=== PATIENT | female | born 1975 | race Caucasian/White ===

== ENCOUNTER 2016-09-06 16:31 | Inpatient (IN) | payer BC, OTHER ==
[~2016-09-06] VITALS: Ht 170.2 cm; Wt 71.7 kg
[2016-09-06] MEDS ORDERED: DICYCLOMINE HCL 20 MG TABLET PO PRN (16:45)
[2016-09-06] MEDS ORDERED: LORAZEPAM 2 MG/1 ML VIAL IM PRN (16:45)
[2016-09-06] MEDS ORDERED: LORAZEPAM 1 MG TABLET PO PRN (16:45)
[2016-09-06] MEDS ORDERED: MAG HYDROX/AL HYDROX/SIMETH 30 ML LIQUID UDC PO PRN (16:45)
[2016-09-06] MEDS ORDERED: ACETAMINOPHEN 325 MG TABLET PO PRN (16:45)
[2016-09-06] MEDS ORDERED: ONDANSETRON ODT 4 MG TAB.RAPDIS SL PRN (16:45)
[2016-09-06] MEDS ORDERED: THIAMINE HCL 200 MG/2 ML VIAL IM ONE (16:45)
[2016-09-06] MEDS ORDERED: MIRALAX 17 GM POWD.PACK PO PRN (16:45)
[2016-09-06] MEDS ORDERED: LOPERAMIDE HCL 2 MG CAPSULE PO PRN ×2 (16:45)
[2016-09-06] MEDS ORDERED: PROMETHAZINE HCL 25 MG/1 ML VIAL IM PRN (16:45)
[2016-09-06] MEDS ORDERED: GABAPENTIN 300 MG CAPSULE PO SCH (17:00)
[2016-09-06 18:10] VITALS: BP 128/76
--- NOTE | 2016-09-06 18:30 | NUR ---
Pre-Assessment Pt is a 41-year-old female from [facility], is here for Etoh dependence r/t 3 liters of wine and 4-6 beers per day for the last 4 + months with last drink was 375ml of whiskey today just prior to admission. Pt was prescribed Librium by PCP Dr. Lizzy Villela for attempted home detox, however pt has been taking Librium while drinking up to 4 tabs per day, per , last use was this am prior to admission. Pt also states she take Ambien HS with alcohol at an unknown dose with last use pt states was last night yet is not sure. Pt is very intoxicated with sitter 1:1 Ordered. V/S Stable with elevated HR 101. T. 98.4 HR 101 RR 18 BP 128/76 Spo2 95% RA 0/10 pain CIWA 6
[2016-09-06 18:34] LABS: *URINE HCG, QUAL NEGATIVE (NEGATIVE)
[2016-09-06 18:39] LABS: *AMPHETAMINE, URINE NEGATIVE (NEGATIVE); *BARBITURATE, URINE NEGATIVE (NEGATIVE); *CANNABINOID, URINE POSITIVE (NEGATIVE); *COCCAINE, URINE NEGATIVE (NEGATIVE); *OPIATE, URINE NEGATIVE (NEGATIVE); *PHENCYCLIDINE SCREEN,URINE NEGATIVE (NEGATIVE)
--- NOTE | 2016-09-06 19:00 | NUR ---
ADMISSION NOTE: NEW ADMISSION IS A 41 YO FEMALE ON THE [facility] FLOOR AT 17:45 ON 09/06/16; PRE-ADMISSION ASSESSMENT COMPLETED BY DAY SHIFT NURSE. UDS IS RESULTED POSITIVE FOR BENZODIAZEPINES AND CANNABINOIDS WHICH IS NOT CONSISTENT WITH SA HX PROVIDED; PT DID NOT DISCLOSE MARIJUANA USE. VS AT PRE-ASSESSMENT: 128/76, 101, 97.6, 18, 95% SPO2 ON RA., CIWA IS 6: PT REPORTS ANXIETY, DIAPHORESIS, HEADACHE, DISORIENTED. HEIGHT IS 57 AND WEIGHT BY STANDING SCALE IS 158 LBS. PT REPORTS NKDA/NKFA. PT ADMITTED UNDER THE CARE OF DR CARRERO AND HAS ALREADY BEEN EVALUATED. PT REPORTS THE FOLLOWING SUBSTANCE USE: ETOH (BEER, WINE, WHISKEY): PT REPORTS DRINKING (4-6) 12OZ CANS OF BEER AND 3 LITERS OF WINE DAILY FOR 4 MONTHS CURRENTLY, 26 YEARS TOTAL. LAST DRINK WAS 375ML OF WHISKEY ON THE MORNING OF ADMISSION. LIBRIUM: PT REPORTS TAKING 25-100MG DAILY FOR 2 WEEKS. PT WAS PRESCRIBED LIBRIUM BY PCP DR JESUS SAWANT FOR HOME DETOX FROM ETOH. LAST DOSE WAS 25MG ON THE MORNING PRIOR TO ADMISSION. AMBIEN: PT REPORTS TAKING 5-30MG PO HS PRN FOR 4 MONTHS. PT REPORTS TAKING AMBIEN FOR SLEEP ON NIGHTS THAT SHE IS UNABLE TO PASS OUT. LAST USE WAS 30MG ONE WEEK PRIOR TO ADMISSION, AFTER BEING CONFRONTED BY FAMILY ABOUT HER DRINKING. PT REPORTS THAT SHE IS A NON-SMOKER. WRITTEN SMOKING CESSATION EDUCATION PROVIDED. PT VERBALIZES UNDERSTANDING. PT DENIES ANY TREATMENT HX. PT REPORTS PMHX OF ETOH-INDUCED FATTY LIVER, GERD, HYPERLIPIDEMIA, INSOMNIA, DEPRESSION, ANXIETY, HIATAL HERNIA. PT DENIES SEIZURE HX. PT REPORTS TAKING HOME MEDICATIONS: FLUOXETINE 40MG QAM, OMEPRAZOLE 40MG QAM, LIBRIUM 25MG QID PRN ANXIETY, AND DESTIN HERBAL SUPPLEMENT. PCP IS DR JESUS SAWANT. PT IS AMBULATORY WITH [facility] GAIT. PT IS CURRENTLY ON 1:1 FOR SAFETY; POSSIBLE SUICIDE ATTEMPT ONE WEEK PRIOR TO ADMISSION. PT IS NOTED TO BE LABILE UPON ASSESSMENT. PERRLA AT 3MM. LUNGS ARE CTA THROUGHOUT, RESPIRATIONS ARE EVEN AND UNLABORED. PT DENIES COUGH/SOB. HEART SOUNDS REGULAR. BOWEL SOUNDS ACTIVE IN ALL QUADRANTS; LAST BM ON 09/06/16. ABDOMEN IS SOFT, NON-DISTENDED, NON-TENDER. PT DENIES CURRENT SI/HI.
[2016-09-06 20:00] VITALS: BP 105/69
[2016-09-06] MEDS: FOLIC ACID 1 MG TABLET PO SCH (20:09)
[2016-09-06] MEDS: THIAMINE HCL 100 MG TABLET PO SCH (20:09)
[2016-09-06] MEDS: MULTIVITAMINS,THERAPEUTIC TABLET PO SCH (20:09)
--- NOTE | 2016-09-06 20:09 | NUR ---
16:45 Medications Late: Medications ordered at 16:45 (folic acid, thiamine PO, thiamine IM, and Multivitamin) administered at 20:09. Dr Higgisn assessed pt and entered orders at 16:45; pt on the [facility] floor at 17:45. payroll accounting specialist nurse completed admission and administered medications at start of shift.
[2016-09-06] MEDS: GABAPENTIN 300 MG CAPSULE PO SCH (20:10)
[2016-09-06] MEDS: LORAZEPAM 1 MG TABLET PO PRN (20:29)
--- NOTE | 2016-09-06 20:29 | NUR ---
PRN Ativan: Pt c/o anxiety and sensitivity to light. Pt noted with fine tremor. HR elevated while supine at 102. CIWA is 10. Administered PRN Ativan 1mg as ordered according to CIWA score. Will continue to monitor.
[2016-09-06 20:42] LABS: BASOPHILS # (AUTO) 0.1 K/uL (0.0-0.2); EOSINOPHILS # (AUTO) 0.2 K/uL (0.0-0.7); EOSINOPHILS % (AUTO) 2.8 % (0.0-7.0); HEMATOCRIT 41.8 % (37.0-47.0); HEMOGLOBIN 13.4 g/dL (12.0-16.0); LYMPHOCYTES % (AUTO) 30.5 % (20.5-51.5); MEAN CORPUSCULAR HEMOGLOBIN 30.6 uug (27.0-31.0); MEAN CORPUSCULAR HGB CONC 32 g/dL (32.0-37.0); MEAN CORPUSCULAR VOLUME 94.9 fL (81.0-99.0); MONOCYTES # (AUTO) 0.3 K/uL (0.1-1.30); MONOCYTES % (AUTO) 4.5 % (0.0-11.0); NEUTROPHILS # (AUTO) 4.1 K/uL (1.8-8.9); NEUTROPHILS % (AUTO) 61.2 % (38.5-71.5); PLATELET COUNT (AUTO) 349 K/uL (150-450); RED CELL DISTRIBUTION WIDTH 13.1 % (11.5-14.5); WHITE BLOOD COUNT (AUTO) 6.7 K/uL (4.0-11.2)
[2016-09-06 21:00] LABS: ALBUMIN 3.5 g/dL (3.4-5.0); BILIRUBIN,TOTAL 0.2 mg/dL (0.2-1.0); CALCIUM 7.9 mg/dL (8.5-10.1); CREATININE 0.9 mg/dL (0.6-1.3); MAGNESIUM 1.9 mg/dL (1.8-2.4)
[2016-09-06 21:13] LABS: HIV-1 p24 ANTIGEN NON REACTIVE (NONREACTIVE); HIV-1/2 ANTIBODY NON REACTIVE (NONREACTIVE)
[2016-09-06 21:21] LABS: THYROID STIMULATING HORMONE 0.61 mIU/mL (0.358-3.740)
--- NOTE | 2016-09-06 21:30 | NUR ---
Reassessment: Upon reassessment, CIWA score decreased from 10 to 2 after PRN Ativan 1mg administration. PRN Ativan effective. Will continue to monitor.
[2016-09-07] VITALS: BP 120/80
[2016-09-07] MEDS: diphenhydrAMINE 50 MG CAPSULE PO PRN ×2 (01:24→21:20)
[2016-09-07] MEDS: LORAZEPAM 1 MG TABLET PO PRN (01:24)
--- NOTE | 2016-09-07 01:24 | NUR ---
PRN Ativan and PRN Benadryl: Pt c/o increased anxiety and sensitivity to light. Pt noted to be diaphoretic with fine tremor. HR while supine is 93. CIWA is 10. Administered PRN Ativan 1mg as ordered according to CIWA score. Will continue to monitor. Addendum: 09/07/16 at 0613 by SIMONE REYES RN Pt c/o inability to sleep. PRN Benadryl administered as ordered at 01:24.
--- NOTE | 2016-09-07 02:25 | NUR ---
Reassessment: Upon reassessment, CIWA score decreased from 10 to 3 after PRN Ativan 1mg administration. PRN Ativan effective. Will continue to monitor. Addendum: 09/07/16 at 0615 by SIMONE REYES RN Pt in bed with eyes closed, respirations even and unlabored. PRN Benadryl reassessed 1 hour after administration, and was effective.
[2016-09-07] MEDS ORDERED: FLUO40CA49 PO (03:42)
[2016-09-07] MEDS ORDERED: [UNRECOGNIZED DRUG - REMARK] (03:42)
[2016-09-07] MEDS ORDERED: OMEP20CA10 PO (03:42)
[2016-09-07] MEDS ORDERED: OMEP40CA37 PO (03:42)
[2016-09-07] MEDS ORDERED: CHLO25CA10 PO (03:42)
--- NOTE | 2016-09-07 04:00 | NUR ---
VITALS AND CIWA REFUSED: PT REFUSES 04:00 VITALS AND CIWA ASSESSMENTS. PT EDUCATED ON RISKS AND BENEFITS. ALL SAFETY PRECAUTIONS ARE IN PLACE. WILL CONTINUE TO MONITOR. Addendum: 09/07/16 at 0500 by SIMONE REYES RN Amended: Links added.
--- NOTE | 2016-09-07 07:30 | NUR ---
End of Shift Note: Pt is a 41yo female admitted on 09/06/16 for medically supervised withdrawal from ETOH. Pt reports drinking 3 liters of wine and 48-72oz of beer daily for 4 months. Pt is to start a 5-day Ativan taper today. PRN Ativan was given x2 for CIWA=10, which were effective. PRN Benadryl was given for insomnia, effective. Last CIWA=3 at 02:25. Pt is on a regular diet, is a full code, and reports NKDA/NKFA. VS stable this shift, with HR elevated at 102 and 93. Pt reports med hx of hyperlipidemia, hiatal hernia, ETOH-induced fatty liver disease, anxiety, depression, suicide attempt, insomnia. Total fluid intake this shift: 1750 ml; output: urine x1 and BM x0. Pt currently in bed and slept 6 hours this shift. Pt endorsed to day shift nurse.
--- NOTE | 2016-09-07 07:40 | NUR ---
START OF SHIFT Pt is a 41 yr old female, AA&OX4. Pt was admitted on 09/06/16 for ETOH/Benzo Dependence and is on 5 day Ativan taper as ordered. Pt is full code, regular diet and NKA. Pt reports of PMH of Fatty liver disease induced by ETOH, GERD, Hiatal Hernia, Hyperlipidemia, Depression, Anxiety and Attempted Suicide. Pt is c/o hot sweats and is observed with facial sweating and redness. Skin is intact, warm and moist to touch. No tremors seen or felt. No SI/ HI noted. Safety precautions observed. Call light is within reach. Will continue to monitor.
[2016-09-07] MEDS: PANTOPRAZOLE SODIUM 40 MG TABLET.DR PO SCH (07:51)
[2016-09-07 08:00] VITALS: BP 113/81
[2016-09-07] MEDS: FOLIC ACID 1 MG TABLET PO SCH (08:34)
[2016-09-07] MEDS: LORAZEPAM 1 MG TABLET PO SCH ×4 (08:34→21:19)
[2016-09-07] MEDS: THIAMINE HCL 100 MG TABLET PO SCH (08:34)
[2016-09-07] MEDS: DOCUSATE SODIUM 250 MG CAPSULE PO SCH (08:34)
[2016-09-07] MEDS: GABAPENTIN 300 MG CAPSULE PO SCH ×3 (08:34→21:20)
[2016-09-07] MEDS: CLONIDINE HCL 0.1 MG TABLET PO PRN ×2 (08:35→21:21)
[2016-09-07] MEDS: MULTIVITAMINS,THERAPEUTIC TABLET PO SCH (08:35)
--- NOTE | 2016-09-07 08:35 | NUR ---
CLONIDINE PRN GIVEN Pt c/o facial sweats. Clonidine 0.1mg PO PRN was given as ordered. Medication leon well. Encouraged increase fluid intake. Will continue to monitor.
[2016-09-07] MEDS ORDERED: PNEUMOCOCCAL 23-VAL P-SAC VAC 0.5 ML VIAL IM ONE (09:00)
[2016-09-07] MEDS ORDERED: 5 DAY TAPER OF LORAZEPAM -SERENITY PROTOCOL PO PRN (09:00)
[2016-09-07] MEDS ORDERED: TUBERCULIN,PURIF.PROT.DERIV. 5 TU/0.1 ML TEST ID ONE (09:00)
[2016-09-07] MEDS ORDERED: INFLUENZA VACCINE 0.5 ML DISP.SYRIN IM ONE (09:00)
--- NOTE | 2016-09-07 09:35 | NUR ---
PRN RE-ASSESSMENT Clonidine PRN was effective. No facial sweats is observed. Encouraged increase fluid intake will continue to monitor.
[2016-09-07 12:00] VITALS: BP 128/87
[2016-09-07 16:00] VITALS: BP 138/85
--- NOTE | 2016-09-07 18:50 | NUR ---
END OF SHIFT Pt is a 41 yr old female, AA&OX4. Pt was admitted on 09/06/16 for ETOH/Benzo Dependence and is on 5 day Ativan taper as ordered. Pt is full code, regular diet and NKA. Pt reports of PMH of Fatty liver disease induced by ETOH, GERD, Hiatal Hernia, Hyperlipidemia, Depression, Anxiety and Attempted Suicide. Pt has been cooperative with medication regime and plan of care. Pt attended group sessions. Pt received Clonidine PO PRN for sweats. Medication was effective. Pt is still observed with facial redness. Pt is c/o mild anxiety but is able to cope with anxiety level. Skin is intact, warm and moist to touch. No tremors seen or felt. No SI/ HI noted. Last CIWA score is 3 at 1600. Safety precautions observed. Call light is within reach.
--- NOTE | 2016-09-07 19:40 | NUR ---
Start of Shift Note: Report received from day shift nurse. Pt is a 41yo female admitted on 09/06/16 for ETOH dependence and withdrawal. Pt reports drinking 3 liters of wine and 48-72oz of beer daily for 4 months. Pt is on day 1 of a 5-day Ativan taper. Last day shift CIWA=3. PRN clonidine was given during day shift to supplement Ativan taper for additional s/s of withdrawal. Pt is on a regular diet, is a full code, and reports NKDA/NKFA. Pt reports med hx of hyperlipidemia, hiatal hernia, ETOH-induced fatty liver disease, anxiety, depression, suicide attempt, insomnia. Pt is currently in bed with lights off watching television. All needs attended and met at this time. Will continue to monitor.
[2016-09-07 20:00] VITALS: BP 133/80
--- NOTE | 2016-09-07 20:00 | NUR ---
UDS (+) Cannabinoids: Pt did not report use of marijuana upon admission. UDS resulted (+) for cannabinoids. Pt reports that she ate a small portion of a marijuana brownie a "couple of days" prior to admission. Pt reports that she does not use marijuana regularly, and that this was the first time using in many years.
--- NOTE | 2016-09-07 21:20 | NUR ---
PRN Clonidine and PRN Benadryl: Pt c/o anxiety. Administered PRN clonidine as ordered. Pt c/o inability to sleep. Administered PRN Benadryl as ordered. Will continue to monitor.
--- NOTE | 2016-09-07 22:20 | NUR ---
Reassessment: Pt is in bed with eyes closed. Respirations are even and unlabored. No s/s of acute distress noted. PRN clonidine and PRN Benadryl effective. Will continue to monitor.
--- NOTE | 2016-09-08 | NUR ---
VS/CIWA Refused: Pt refuses V/S and CIWA assessments, pt states that she wants to sleep. Pt educated on risks and benefits but continues to refuse. All safety precautions are in place. Will continue to monitor. Addendum: 09/08/16 at 0639 by SIMONE REYES RN Amended: Links added.
--- NOTE | 2016-09-08 04:00 | NUR ---
VS and CIWA Refused: Pt refuses V/S and CIWA assessments for sleep. Pt educated on risks and benefits but continues to refuse. All safety precautions are in place. Will continue to monitor. Addendum: 09/08/16 at 0639 by SIMONE REYES RN Amended: Links added.
--- NOTE | 2016-09-08 07:11 | NUR ---
End of Shift Note: Pt is a 41yo female admitted on 09/06/16 for medically supervised withdrawal from ETOH. Pt reports drinking 3 liters of wine and 48-72oz of beer daily for 4 months. Pt is to start day 2 of a 5-day Ativan taper today. Scheduled Ativan taper managed s/s of withdrawal this shift, in addition to PRN clonidine for anxiety. Last CIWA=10 at 20:00 prior to Ativan taper dose. PRN Benadryl was given for inability to sleep. V/S stable this shift with HR slightly elevated at 100. Pt is a full code, and reports NKDA/NKFA. Pt reports med hx of hyperlipidemia, hiatal hernia, ETOH-induced fatty liver disease, anxiety, depression, suicide attempt, insomnia. Pt is on a regular diet and tolerating well. Intake: 796 ml; Output: urine 2x, BM 0x. Pt is currently in bed and slept 7 hours this shift. All needs attended and met. All safety precautions are in place. Endorsed to day shift nurse that pt requests herbal medication (home med) Marlin to be administered for breast tenderness. All pertinent info endorsed to day shift nurse.
[2016-09-08] MEDS: PANTOPRAZOLE SODIUM 40 MG TABLET.DR PO SCH (07:26)
--- NOTE | 2016-09-08 07:30 | NUR ---
Start of shift note; Received report from night nurse. Patient is a 41 y/o female, AA&OX4. Pt was admitted on 09/06/16 for ETOH Dependence and was placed on 5 day Ativan taper, tolerating well. Pt is full code, regular diet and NKA. Pt reports of PMH of Fatty liver disease induced by ETOH, GERD, Hiatal Hernia, Hyperlipidemia, Depression, Anxiety and Attempted Suicide. Skin is intact, warm and moist to touch. Patient reported body aches, hot and cold flushes and stomach cramps No SI/ HI noted. Patient's last CIWA was 10 at night time. Safety precautions observed. Call light is within reach. Will continue to monitor.
[2016-09-08 08:00] VITALS: BP 111/66
[2016-09-08] MEDS: MULTIVITAMINS,THERAPEUTIC TABLET PO SCH (08:08)
[2016-09-08] MEDS: LORAZEPAM 1 MG TABLET PO SCH ×3 (08:08→20:56)
[2016-09-08] MEDS: FLUOXETINE HCL 20 MG CAPSULE PO SCH (08:08)
[2016-09-08] MEDS: GABAPENTIN 300 MG CAPSULE PO SCH ×3 (08:09→20:56)
[2016-09-08] MEDS: DOCUSATE SODIUM 250 MG CAPSULE PO SCH (08:09)
[2016-09-08] MEDS: FOLIC ACID 1 MG TABLET PO SCH (08:09)
[2016-09-08] MEDS: THIAMINE HCL 100 MG TABLET PO SCH (08:09)
[2016-09-08] MEDS: IBUPROFEN 400 MG TABLET PO PRN (08:09)
--- NOTE | 2016-09-08 08:09 | NUR ---
PRN medication; Patient is complaining of generalized pain, rated 6/10 on pain scale. PRN Ibuprofen 400mg given as per ordered. Will continue to monitor patient.
[2016-09-08 08:33] LABS: ALBUMIN 3.1 g/dL (3.4-5.0); BILIRUBIN,DIRECT 0.1 mg/dL (0.0-0.2); BILIRUBIN,TOTAL 0.3 mg/dL (0.2-1.0); CALCIUM 8.4 mg/dL (8.5-10.1); CREATININE 0.7 mg/dL (0.6-1.3); TOTAL PROTEIN, SERUM 6.3 g/dL (6.4-8.2)
[2016-09-08] MEDS ORDERED: Medication Not On Formulary EA (Fluoxetine Hcl 40 MG) PO SCH (09:00)
--- NOTE | 2016-09-08 09:20 | NUR ---
Re-assessment; PRN medication is effective, patient stated pain of 3/10. Will continue to monitor patient.
[2016-09-08 11:07] LABS: HCV AB <0.1 s/co ratio (0.0-0.9); HEPATITIS B CORE AB, IgM Negative (Negative); HEPATITIS B SURFACE AG Negative (Negative)
[2016-09-08 12:00] VITALS: BP 116/68
[2016-09-08 16:00] VITALS: BP 130/82
--- NOTE | 2016-09-08 16:01 | NUR ---
Re-assessment; Patient is calm and comfortable. PRN medication is effective.
[2016-09-08] MEDS: PATIENT MAY USE OWN MED- MD OK PO SCH (16:39)
[2016-09-08] MEDS: HYDROXYZINE PAMOATE 25 MG CAPSULE PO PRN (16:42)
--- NOTE | 2016-09-08 17:01 | NUR ---
PRN medication; Patient appeared very anxious after attending Group therapy. Patient is pacing back and forth in the room unable to sit still with teary eyes. Relaxation and non-pharmacological techniques ineffective. PRN Vistaril 25mg. PO given for anxiety. Will continue to monitor patient.
--- NOTE | 2016-09-08 18:45 | NUR ---
START OF SHIFT NOTE Patient 's endorsed by day shift nurse. SBAR report received. Patient is a 41 years old female admitted to [facility] on 09/06/2016 for Alcohol/Librium/Ambien dependence, and placed on 5 day Ativan taper. Patient remains compliance with ordered taper. NKA, NKDA, NKFA, Regular Diet, Full Code, Fall and Seizures Precautions. Patient denied History of Seizures . Substance Use: ETOH(Wine, Beers) " 4-6(12) oz beers and 3 Liters Wine daily 4 months of current amount, and 26 years total." Date of Last Use "on 09/03/2016 at AM ". Librium "25-100 mg PRN for Anxiety during 2 weeks". Last time used on "09/03/2016 at AM - 25 mg". Ambien "5-30 mg PRN for sleep Aid during 4 months". Last amount of" 30 mg on 09/01/2016". No treatment history. Past Medical History: Attempted Suicide. Anxiety; Depression; Insomnia; ETOH induced Fatty Liver Disease; GERD; Hiatal Hernia; Hyperlipidimia. Upon assessment Patient alert and oriented x4. CIWA 6. Patient presents with anxiety, nervousness, agitation, stomach cramps, gross and fine tremors, stiffness of the nose, bones and muscles aching. Patient has VS WNL. Breathing is unlabored and even; Lungs are clear bilaterally; Patient denied SOB and heart pain. Stomach is soft and non-distended. BS are active in all x4 quadrants. Skin is intact, warm, and moist to touch. Patient attended activity groups. Patient remains compliant with medications and diet regime. Patient's educated for safety issues. Patient verbalized understanding by return his knowledge back. Patient will discharging tomorrow, in the morning. Will providing ordered UDS test. Safety measures in the place by hospital policy: Call light within reach; Bed in the lowest position and locked; Bed rails up x2. Will continue to monitor.
--- NOTE | 2016-09-08 18:57 | NUR ---
End of shift note; Patient is a 41 y/o female, AA&OX4. Pt was admitted on 09/06/16 for ETOH Dependence and was placed on 5 day Ativan taper, tolerating well. Pt is full code, regular diet and NKA. Pt reports of PMH of Fatty liver disease induced by ETOH, GERD, Hiatal Hernia, Hyperlipidemia, Depression, Anxiety and Attempted Suicide. Skin is intact, warm and moist to touch. Patient remained compliant with treatment plan and participated in group therapies and activities. Patient's last CIWA score is 6. Medications were effective in reducing withdrawal symptoms. Safety precautions observed. Met all needs.
[2016-09-08 20:00] VITALS: BP 128/93
[2016-09-08] MEDS: MAGNESIUM HYDROXIDE 30 ML LIQUID UDC PO PRN (21:03)
--- NOTE | 2016-09-08 21:03 | NUR ---
PRN MAALOX SUSPENSION PO ADMINISTRATION Patient c/o constipation. Patient's assessed. PRN Maalox Suspension PO was discussed with patient. Patient's educated for actions, adverse reactions, and side effects of Maalox Suspension. Patient return back her knowledge back by verbalizing understanding. PRN Maalox Suspension PO administrated as ordered. Patient tolerated well. Safety measures on place by hospital policy: Call light within reach; Bed in lowest position and locked; side rails up x2. Will continue to monitor.
--- NOTE | 2016-09-08 22:03 | NUR ---
REASSESSMENT Patient was reassessed. Patient said that " I have feeling better". PRN Maalox Suspension was effective. Safety measures on place by hospital policy: Call light within reach; Bed in lowest position and locked; side rails up x2. Will continue to monitor.
[2016-09-09] VITALS: BP 134/84
[2016-09-09] MEDS: HYDROXYZINE PAMOATE 25 MG CAPSULE PO PRN (03:32)
--- NOTE | 2016-09-09 03:32 | NUR ---
PRN VISTARIL PO ADMINISTRATION Patient c/o increased anxiety. Patient 's assessed. PRN Vistaril 's discussed. Patient's educated for actions, adverse reactions,and side effects of Vistaril. Patient return back her knowledge back by verbalizing understanding. PRN Vistaril PO administrated as ordered. Patient tolerated well. Safety measures on place by hospital policy: Call light within reach; Bed in lowest position and locked; side rails up x2. Will continue to monitor.
[2016-09-09 04:00] VITALS: BP 117/72
--- NOTE | 2016-09-09 04:32 | NUR ---
REASSESSMENT PRN Vistaril was effective. Patient sleeping quietly. Breathing even and unlabored. RR: 16. Safety measures in the place by hospital policy: Call light within reach; Bed in the lowest position and locked; Bed rails up x2. Will continue to monitor.
[2016-09-09] MEDS: PANTOPRAZOLE SODIUM 40 MG TABLET.DR PO SCH (06:17)
--- NOTE | 2016-09-09 07:01 | NUR ---
END OF SHIFT NOTE Patient is a 41 years old female admitted to [facility] on 09/06/2016 for Alcohol/Librium/Ambien dependence, and placed on 5 day Ativan taper. Patient remains compliance with ordered taper. NKA, NKDA, NKFA, Regular Diet, Full Code, Fall and Seizures Precautions. Patient denied History of Seizures . Past Medical History: Attempted Suicide. Anxiety; Depression; Insomnia; ETOH induced Fatty Liver Disease; GERD; Hiatal Hernia; Hyperlipidimia. Substance Use History: ETOH(Wine, Beers) " 4-6(12) oz beers ; 3 Liters Wine daily 4 months of current amount. 26 years total. Librium PO"25-100 mg PRN for Anxiety during 2 weeks". Ambien PO "5-30 mg PRN for sleep Aid during 4 months. Last rn night patient presents with anxiety, nervousness, agitation, irritability, restlessness, runny nose, stomach cramps, gross and fine tremors, stiffness of the nose, bones and muscles aching. CIWA decreased from 11 to 4. Patient remains compliant with therapeutic plan, medications, and diet regime. VS WNL. Patient attended activity groups. Patient slept 8 hours; Intake 1355 ml; output x3. Safety measures in the place by hospital policy: Call light within reach; Bed in the lowest position and locked; Bed rails up x2. Patient endorsed to day shift nurse in stable condition. Report given.
--- NOTE | 2016-09-09 07:58 | NUR ---
Start of shift note; Received report from night nurse. Patient is resting with eyes closed, respirations even and unlabored. Patient is a 41 y/o female, AA&OX4. Pt was admitted on 09/06/16 for ETOH Dependence and was placed on 5 day Ativan taper, tolerating well. Pt is full code, regular diet and NKA. Pt reports of PMH of Fatty liver disease induced by ETOH, GERD, Hiatal Hernia, Hyperlipidemia, Depression, Anxiety and Attempted Suicide. Skin is intact, warm and moist to touch. Patient reported body aches, hot and cold flushes and stomach cramps No SI/ HI noted. Patient's last CIWA was 2 at night time. Safety precautions observed. Call light is within reach. Will continue to monitor.
[2016-09-09 08:00] VITALS: BP 138/90
[2016-09-09] MEDS: THIAMINE HCL 100 MG TABLET PO SCH (08:55)
[2016-09-09] MEDS: GABAPENTIN 300 MG CAPSULE PO SCH ×3 (08:55→21:00)
[2016-09-09] MEDS: FLUOXETINE HCL 20 MG CAPSULE PO SCH (08:55)
[2016-09-09] MEDS: MULTIVITAMINS,THERAPEUTIC TABLET PO SCH (08:55)
[2016-09-09] MEDS: DOCUSATE SODIUM 250 MG CAPSULE PO SCH (08:55)
[2016-09-09] MEDS: LORAZEPAM 1 MG TABLET PO SCH ×4 (08:55→21:00)
[2016-09-09] MEDS: FOLIC ACID 1 MG TABLET PO SCH (08:55)
[2016-09-09] MEDS: PATIENT MAY USE OWN MED- MD OK PO SCH (08:58)
[2016-09-09] MEDS ORDERED: ONDANSETRON 4 MG/2 ML VIAL IM PRN (11:30)
[2016-09-09 12:00] VITALS: BP 130/88
[2016-09-09 16:00] VITALS: BP 120/90
--- NOTE | 2016-09-09 18:32 | NUR ---
End of shift note; Patient is AOX4. Patient is a 41 y/o for ETOH dependence. Patient was started on a 5 day Ativan taper, no adverse reactions noted. Medications were effective in reducing withdrawal symptoms. Patient remained compliant with treatment plan. All safety measures secured. Met all needs.
--- NOTE | 2016-09-09 18:45 | NUR ---
START OF SHIFT NOTE Patient is a 41 years old female admitted to [facility] on 09/06/2016 for Alcohol, Librium, and Ambien dependence, placed on 5 day Ativan taper. Patient remained compliant with treatment plan. NKA, NKDA, NKFA, Regular Diet, Full Code, Fall and Seizures Precautions. Patient denied History of Seizures . Past Medical History: Attempted Suicide. Anxiety; Depression; Insomnia; ETOH induced Fatty Liver Disease; GERD; Hiatal Hernia; Hyperlipidimia. Substance Use History: ETOH(Wine, Beers) " 4-6(12) oz beers; 3 Liters Wine daily 4 months of current amount. 26 years total". Librium PO"25-100 mg PRN for Anxiety during 2 weeks". Ambien PO "5-30 mg PRN for sleep Aid during 4 months". Upon assessment CIWA 5: patient presenting with mild anxiety, irritability, restlessness, stomach cramps, tremors that can felt, barely sweating, bones and muscles aching. Patient remained compliant with therapeutic plan, medications, and diet regime. VS WNL. Breathing is unlabored and even. Lungs Sounds are clear bilaterally upon auscultation. Patient denies SOB and Heart pain. Bowel Sounds are active in all x4 quadrants. Abdomen is soft and non-distended. Skin is intact, warm, and moist by touch. Patient denies N/V and diarrhea. Patient remains compliant with medications, diet, and therapeutic plan. Patient 's educated for Fall Prevention in Hospital. Patient returns his knowledge back by verbalizing understanding. Patient attended activities groups. Patient attended activity groups. Safety measures in the place by hospital policy: Call light within reach, bed in the lowest position and locked, bed rails up x2.Will continue to monitor.
[2016-09-09 20:00] VITALS: BP 153/90
[2016-09-09] MEDS: MAGNESIUM HYDROXIDE 30 ML LIQUID UDC PO PRN (21:15)
--- NOTE | 2016-09-09 21:15 | NUR ---
PRN MILK OF MAGNESIA PO ADMINISTRATION Patient c/o constipation. Patient's assessed. PRN Milk of Magnesia PO was discussed with patient. Patient's educated for actions, adverse reactions, and side effects of Maalox Suspension. Patient return back her knowledge back by verbalizing understanding. PRN Milk of Magnesia PO administrated as ordered. Patient tolerated well. Safety measures on place by hospital policy: Call light within reach; Bed in lowest position and locked; side rails up x2. Will continue to monitor.
--- NOTE | 2016-09-09 22:15 | NUR ---
REASSESSMENT PRN Milk of Magnesia PO was effective. Patient sleeping quietly. Breathing even and unlabored. RR:14. Safety measures in the place by hospital policy:Call light within reach; Bed in the lowest position and locked; Bed rails up x2.Will continue to monitor.
[2016-09-10] VITALS: BP 123/79
[2016-09-10 04:00] VITALS: BP 132/94
[2016-09-10] MEDS: PANTOPRAZOLE SODIUM 40 MG TABLET.DR PO SCH (06:31)
--- NOTE | 2016-09-10 07:19 | NUR ---
END OF SHIFT NOTE Patient is a 41 years old female admitted to [facility] on 09/06/2016 for Alcohol/Librium/Ambien dependence, and placed on 5 day Ativan taper. Patient remains compliance with ordered taper.NKA, NKDA, NKFA, Regular Diet, Full Code, Fall and Seizures Precautions. Patient denied History of Seizures . Past Medical History: Attempted Suicide. Anxiety; Depression; Insomnia; ETOH induced Fatty Liver Disease; GERD; Hiatal Hernia; Hyperlipidimia. Substance Use History: ETOH(Wine, Beers) " 4-6(12) oz beers ; 3 Liters Wine daily 4 months of current amount. 26 years total. Librium PO"25-100 mg PRN for Anxiety during 2 weeks". Ambien PO "5-30 mg PRN for sleep Aid during 4 months. During my shift, CIWA decreased from 5 to 4: patient presenting with mild anxiety, irritability, restlessness, stomach cramps, tremors that can felt, barely sweating, bones and muscles aching. PRN Milk of Magnesia's effective. Patient remains compliant with therapeutic plan, medications, and diet regime. VS WNL. Patient attended activity groups. Patient slept 6.5 hours; Intake 300 ml; output x1. Safety measures in the place by hospital policy: Call light within reach; Bed in the lowest position and locked; Bed rails up x2. Patient endorsed to day shift nurse in stable condition. Report given.
--- NOTE | 2016-09-10 07:53 | NUR ---
Start of shift note; Received report from night nurse. Patient is a 41 y/o female, AA&OX4. Pt was admitted on 09/06/16 for ETOH Dependence and was placed on 5 day Ativan taper, tolerating well. Pt is full code, regular diet and NKA. Pt reports of PMH of Fatty liver disease induced by ETOH, GERD, Hiatal Hernia, Hyperlipidemia, Depression, Anxiety and Attempted Suicide. Skin is intact, warm and moist to touch. Patient reported body aches, hot and cold flushes and stomach cramps No SI/ HI noted. Patient's last CIWA was 4 at night time. Safety precautions observed. Call light is within reach. Patient is currently resting with eyes clsoed, respirations even and unlabored. Will continue to monitor.
[2016-09-10 08:00] VITALS: BP 130/98
[2016-09-10] MEDS: LORAZEPAM 1 MG TABLET PO SCH ×3 (08:42→20:33)
[2016-09-10] MEDS: GABAPENTIN 300 MG CAPSULE PO SCH ×3 (08:42→20:33)
[2016-09-10] MEDS: MULTIVITAMINS,THERAPEUTIC TABLET PO SCH (08:42)
[2016-09-10] MEDS: PATIENT MAY USE OWN MED- MD OK PO SCH (08:42)
[2016-09-10] MEDS: FLUOXETINE HCL 20 MG CAPSULE PO SCH (08:42)
[2016-09-10] MEDS: FOLIC ACID 1 MG TABLET PO SCH (08:42)
[2016-09-10] MEDS: THIAMINE HCL 100 MG TABLET PO SCH (08:42)
[2016-09-10] MEDS: DOCUSATE SODIUM 250 MG CAPSULE PO SCH (08:43)
[2016-09-10 12:00] VITALS: BP 128/88
[2016-09-10 16:00] VITALS: BP 138/90
--- NOTE | 2016-09-10 19:30 | NUR ---
START OF SHIFT NOTE Pt is a 41 y/o female admitted for ETOH dependence. Pt has NKA, but reported a PMH of ETOH induced fatty liver disease, GERD, hiatal hernia, hyperlipidemia, depression, anxiety, insomnia, and attempted suicide. Per day shift nurse pt was placed on a 5 day Ativan taper (day 4) and is tolerating medication well, with no s/e or a/r reported. Pt didn't receive any PRNS during the day shift. Last CIWA: 2 (1600). At this time pt is calm, cooperative, and compliant with plan of care. Pt denies any pain/discomfort. Pt is encouraged to notify staff of any changes in condition or of any concerns. Pt verbalized an understanding. All safety measures in place; side rails up x 2, bed locked and in low position, and call light within reach. Will continue to monitor.
[2016-09-10 20:00] VITALS: BP_SYST 147; BP_SYST 154; BP_DIAS 102; BP_DIAS 103
[2016-09-10] MEDS: IBUPROFEN 400 MG TABLET PO PRN (20:34)
[2016-09-10] MEDS: HYDROXYZINE PAMOATE 25 MG CAPSULE PO PRN (20:34)
[2016-09-10] MEDS: CLONIDINE HCL 0.1 MG TABLET PO PRN (20:37)
--- NOTE | 2016-09-10 20:40 | NUR ---
MOTRIN, CLONIDINE, AND VISTARIL PRN ADMINISTRATION Pt stated " I'm just having a lot of anxiety. I had a conversation with my and it's just a lot going on. I'm also on my cycle and I'm having a really heavy flow with cramps. Can I please have something?" Vistaril 25 mg PO PRN and Motrin 400 mg PO PRN was given. Pt's blood pressure was elevated even after the second attempt (152/102). Clonidine 0.1 mg PO PRN was also given. Pt was encouraged to notify staff of any changes in condition or of any concerns. Pt verbalized an understanding. All safety measures in place. Will monitor for effectiveness.
--- NOTE | 2016-09-10 21:40 | NUR ---
MOTRIN, VISTARIL, AND CLONIDINE PRN REASSESSMENT Pt stated " I feel better now. The medicine really helped." Pt's blood pressure at this time is (139/87). PRNS effective. Pt is encouraged to notify staff of any changes in condition or of any concerns. Pt verbalized an understanding. All safety measures in place. Will continue to monitor.
[2016-09-11] VITALS: BP 137/89
[2016-09-11] MEDS: diphenhydrAMINE 50 MG CAPSULE PO PRN ×2 (00:05→22:20)
[2016-09-11] MEDS: CLONIDINE HCL 0.1 MG TABLET PO PRN ×2 (03:52→22:15)
--- NOTE | 2016-09-11 03:52 | NUR ---
CLONIDINE PRN ADMINISTRATION Pt stated " I'm sweaty all over. My hair is wet, the sheets are damp. What can I do?" Pt offered Clonidine 0.1 mg to help with excessive sweating. With pt's verbal consent Clonidine 0.1 mg PO PRN was given( current blood pressure 118/83). Pt was encouraged to notify staff of any changes in condition or of any concerns. Pt verbalized an understanding. Pt was offered a fresh set of scrub pants and a t-shirt along with fresh linen, but the pt declined. All safety measures in place. Will monitor for effectiveness.
[2016-09-11 04:00] VITALS: BP 119/83
--- NOTE | 2016-09-11 05:00 | NUR ---
CLONIDINE PRN REASSESSMENT Pt is asleep in bed with no signs of discomfort/distress or visible sweat noted. Pt's breathing is even and unlabored. Respirations are 16 breaths per minute. PRN effective. All safety measures in place. Will continue to monitor.
--- NOTE | 2016-09-11 07:06 | NUR ---
END OF SHIFT NOTE Pt is a 41 y/o female admitted for ETOH dependence. Pt has NKA, but reported a PMH of ETOH induced fatty liver disease, GERD, hiatal hernia, hyperlipidemia, depression, anxiety, insomnia, and attempted suicide. Pt continues on a 5 day Ativan taper (day 5) and is tolerating medication well, with no s/e or a/r reported. Pt received Vistaril 25 mg PO PRN, Motrin 400 mg, and Clonidine 0.1 mg PO PRN x 2 during the shift. Pt slept for a total of 6 hours. Last CIWA: 5 (0400). All safety measures in place; side rails up x 2, bed locked and in low position, and call light within reach. Endorsed to the oncoming nurse.
[2016-09-11] MEDS: PANTOPRAZOLE SODIUM 40 MG TABLET.DR PO SCH (07:28)
--- NOTE | 2016-09-11 07:30 | NUR ---
START OF SHIFT Received report from overnight houseperson nurse. 41 year old patient admitted on 09/06/16 for ETOH, Librium and Ambien dependence. Pt is A/O x4. Pt is on a 5 day Ativan taper and is tolerating well. Hx of GERD, hiatial hernia, hyperlipidemia, depression, anxiety, and insomnia. Pt denies SI/HI at this time. Pt ambulates with steady gait. RR even and unlabored. PRN Vistaril, Motrin, Clonidine were administered and effective. Pt slept for 5 hours. Pt has bruise on right arm but skin remains intact. Most recent CIWA is 5. All needs met, will continue to monitor.
[2016-09-11 09:22] VITALS: BP 120/84
[2016-09-11] MEDS: GABAPENTIN 300 MG CAPSULE PO SCH ×3 (09:24→20:13)
[2016-09-11] MEDS: PATIENT MAY USE OWN MED- MD OK PO SCH (09:24)
[2016-09-11] MEDS: FOLIC ACID 1 MG TABLET PO SCH (09:25)
[2016-09-11] MEDS: DOCUSATE SODIUM 250 MG CAPSULE PO SCH (09:25)
[2016-09-11] MEDS: LORAZEPAM 1 MG TABLET PO SCH ×2 (09:25→20:13)
[2016-09-11] MEDS: THIAMINE HCL 100 MG TABLET PO SCH (09:25)
[2016-09-11] MEDS: MULTIVITAMINS,THERAPEUTIC TABLET PO SCH (09:25)
[2016-09-11] MEDS: FLUOXETINE HCL 20 MG CAPSULE PO SCH (09:25)
[2016-09-11 13:39] VITALS: BP 120/84
--- NOTE | 2016-09-11 14:01 | NUR ---
PRN BENTYL Pt complains of stomach cramps 12/18. Nonpharmacological methods ineffective. PRN Bentyl administered as ordered.
--- NOTE | 2016-09-11 15:01 | NUR ---
REASSESSMENT Pt denies pain at this time, and states medication was effective.
[2016-09-11 17:35] VITALS: BP 117/77
[2016-09-11] MEDS: HYDROXYZINE PAMOATE 25 MG CAPSULE PO PRN (18:59)
--- NOTE | 2016-09-11 18:59 | NUR ---
PRN VISTARIL Pt reports increased anxiety that is not relieved by nonpharmacological methods. Pt encouraged to take deep breaths. PRN Visatril administered as ordered, operation shift supervisor to reassess.
--- NOTE | 2016-09-11 19:03 | NUR ---
END OF SHIFT NOTE 41 year old patient admitted on 09/06/16 for ETOH, Librium and Ambien dependence. Pt is A/O x4. Pt is on a 5 day Ativan taper and is tolerating well. Hx of GERD, hiatial hernia, hyperlipidemia, depression, anxiety, and insomnia. Pt denies SI/HI at this time. Pt ambulates with steady gait. RR even and unlabored. PRN Bentyl (effective) and Vistaril (steel tester to reassess). Most recent CIWA is 3. All needs met. BM X1, vital signs remain WNL, encouraged to attend activities and group therapies. paperhanger assistant nurse will continue to monitor.
--- NOTE | 2016-09-11 19:30 | NUR ---
START OF SHIFT NOTE Pt is a 41 y/o female admitted for ETOH dependence. Pt has NKA, but reported a PMH of ETOH induced fatty liver disease, GERD, hiatal hernia, hyperlipidemia, depression, anxiety, insomnia, and attempted suicide. Per day shift nurse pt continues on a 5 day Ativan taper (day 5) and is tolerating medication well, with no s/e or a/r reported. Pt received Vistaril PO PRN ( noted and reported effective upon reassessment) and Bentyl PO PRN during the day Last CIWA: 3 (1600). At this time pt is calm, cooperative, and compliant with plan of care. Pt denies any pain/discomfort. Pt is encouraged to notify staff of any changes in condition or of any concerns. Pt verbalized an understanding. All safety measures in place; side rails up x 2, bed locked and in low position, and call light within reach. Will continue to monitor.
[2016-09-11 20:00] VITALS: BP 147/102
--- NOTE | 2016-09-11 22:20 | NUR ---
CLONIDINE AND BENADRYL PRN ADMINISTRATION Pt's blood around 1999 was elevated (147/102). Pt was encouraged to try Clonidine PO PRN. Pt stated " That stuff makes me tired. I'm supposed to finish watching a show in the recreational room with someone. I'll take it after." Pt denied any blurred vision, dizziness, headache, or nausea. Around 2214 Pt approached the nurse's station and stated " Can I have the medication now along with my sleep medication? Clonidine 0.1 mg PO PRN (Pt's blood pressure at this time 143/102) and Benadryl 50 mg PO PRN was given. Pt was encouraged to notify staff of any changes in condition or any concerns. Pt verbalized an understanding. All safety measures in place. Will monitor for effectiveness.
--- NOTE | 2016-09-11 23:15 | NUR ---
CLONIDINE AND BENADRYL PRN REASSESSMENT Pt is asleep in bed with no signs of discomfort/distress noted. Pt was asked to have blood pressure retaken. Pt's blood pressure at this time (138/92) PRNS effective. Pt is encouraged to notify staff of any changes in condition or of any concerns. Pt verbalized an understanding. All safety measures in place Will continue to monitor.
--- NOTE | 2016-09-12 | NUR ---
CIWA AND VITALS REFUSED Pt refused to be assessed and have vitals taken at this time. Pt was encouraged x 3 with risks and benefits explained but the pt still refused. All safety measures in place. Will continue to monitor. Addendum: 09/12/16 at 0319 by EVY GARCIA LVN Amended: Links added.
[2016-09-12 04:00] VITALS: BP 121/89
[2016-09-12] MEDS: PANTOPRAZOLE SODIUM 40 MG TABLET.DR PO SCH (06:51)
[2016-09-12] MEDS: HYDROXYZINE PAMOATE 25 MG CAPSULE PO PRN ×2 (06:55→20:35)
--- NOTE | 2016-09-12 07:00 | NUR ---
VISTARIL PRN ADMINISTRATION Pt stated " I've been kind of just tossing and turning. I can't seem to relax." Pt was offered Vistaril to help with current discomfort. With pt's verbal consent Vistaril 25 mg PO PRN was given. Pt was encouraged to notify staff of any changes in condition or of any concerns. Pt verbalized an understanding. All safety measures in place. Endorsed to the oncoming nurse.
--- NOTE | 2016-09-12 07:04 | NUR ---
END OF SHIFT NOTE Pt is a 41 y/o female admitted for ETOH dependence. Pt has NKA, but reported a PMH of ETOH induced fatty liver disease, GERD, hiatal hernia, hyperlipidemia, depression, anxiety, insomnia, and attempted suicide. Pt completed 5 day Ativan taper and is scheduled for discharge tomorrow. Pt received Vistaril 25 mg PO PRN(endorsed to the oncoming nurse to reassess), Clonidine 0.1 mg PO PRN, and Benadryl 50 mg PO PRN during the shift. Pt slept for a total of 6 hours. Last CIWA: 0 (0400). All safety measures in place; side rails up x 2, bed locked and in low position, and call light within reach. Endorsed to the oncoming nurse.
--- NOTE | 2016-09-12 07:26 | NUR ---
Start of shift note SBAR report rcv'd. Pt was admitted for ETOH dependence. Pt has NKA, has a PMH of ETOH induced fatty liver disease, GERD, hiatal hernia, hyperlipidemia, depression, anxiety, insomnia, and attempted suicide. Pt has completed her 5 day ativan taper without any ASE. Pt is currently resting in her bed, pt recently had a PRN dose of vistaril. Will continue to monitor pt. Safety measures in place. All needs addressed at this time.
[2016-09-12 08:00] VITALS: BP 121/83
--- NOTE | 2016-09-12 08:00 | NUR ---
Reassessment Pt states that the vistaril was effective in alleviating her anxiety. Pt is resting comfortably in her bed. Will continue to monitor pt. All needs addressed at this time.
[2016-09-12] MEDS: FOLIC ACID 1 MG TABLET PO SCH (08:50)
[2016-09-12] MEDS: THIAMINE HCL 100 MG TABLET PO SCH (08:50)
[2016-09-12] MEDS: DOCUSATE SODIUM 250 MG CAPSULE PO SCH (08:51)
[2016-09-12] MEDS: FLUOXETINE HCL 20 MG CAPSULE PO SCH (08:51)
[2016-09-12] MEDS: GABAPENTIN 300 MG CAPSULE PO SCH ×3 (08:51→20:35)
[2016-09-12] MEDS: MULTIVITAMINS,THERAPEUTIC TABLET PO SCH (08:51)
[2016-09-12] MEDS: IBUPROFEN 400 MG TABLET PO PRN ×2 (08:51→14:51)
--- NOTE | 2016-09-12 08:52 | NUR ---
PRN administration Pt states that she is having menstral cramping pain 09/18. Administered motrin per MD order. Will continue to monitor pt.
[2016-09-12] MEDS: PATIENT MAY USE OWN MED- MD OK PO SCH (08:54)
--- NOTE | 2016-09-12 09:52 | NUR ---
Reassessment Pt states that her pain is now 1/10 and that she is comfortable. Will continue to monitor pt. All needs addressed at this time.
[2016-09-12 12:00] VITALS: BP 142/91
[2016-09-12] MEDS: CLONIDINE HCL 0.1 MG TABLET PO PRN ×2 (14:49→22:58)
--- NOTE | 2016-09-12 14:51 | NUR ---
PRN administration Pt c/p cramps and anxiety. Administered clonidine and motrin per MD order. Will continue to monitor pt.
--- NOTE | 2016-09-12 15:51 | NUR ---
Reassessment pt states that her pain is now a 0/10 and that her anxiety has improved. Pt is ambulating around the unit participating in groups and activities.
[2016-09-12 16:00] VITALS: BP 129/88
--- NOTE | 2016-09-12 18:30 | NUR ---
End of shift note Pt was admitted for ETOH and benzo dependence. Pt is on a regular diet, full code and NKA. Pt has successfully completed her ativan taper without any ASE. Pt has a current CIWA of 3 d/t anxiety. Pt received motrin x2 for menstral cramps and clondine x 1 for anxiety with effectiveness. Pt participated in groups and activities and states that she feels ready for discharge tomorrow and states she is ready for the treatment program. Pt needs to provide urine for a UDS. Pt is aware. All needs addressed at this time. Pt states that she is comfortable. Will endorse SBAR to oncoming shift.
--- NOTE | 2016-09-12 19:38 | NUR ---
START OF SHIFT NOTE Pt is a 41 y/o female admitted for ETOH dependence. Pt has NKA, but reported a PMH of ETOH induced fatty liver disease, GERD, hiatal hernia, hyperlipidemia, depression, anxiety, insomnia, and attempted suicide. Pt completed taper and is scheduled for discharge tomorrow. UA is to be collected and sent to the lab for testing. Pt received Motrin 400 mg x 2 and Clonidine 0.1 mg PO PRN during the day shift. Last CIWA: 3 (1600). At this time pt is calm, cooperative, and compliant with plan of care. Pt denies any pain/discomfort. Pt is encouraged to notify staff of any changes in condition or of any concerns. Pt verbalized an understanding. All safety measures in place; side rails up x 2, bed locked and in low position, and call light within reach. Will continue to monitor.
[2016-09-12] MEDS ORDERED: Fluoxetine Hcl PO (19:53)
[2016-09-12] MEDS ORDERED: Gabapentin PO (19:53)
[2016-09-12] MEDS ORDERED: HYDR-3895 PO (19:53)
[2016-09-12] MEDS ORDERED: PANT40TA2 PO (19:53)
[2016-09-12] MEDS ORDERED: DIPH50CA37 PO (19:53)
[2016-09-12] MEDS ORDERED: CLON0.1T14 PO (19:53)
[2016-09-12] MEDS ORDERED: Ibuprofen PO (19:53)
[2016-09-12 20:00] VITALS: BP 133/89
[2016-09-12] MEDS: diphenhydrAMINE 50 MG CAPSULE PO PRN (20:35)
--- NOTE | 2016-09-12 20:35 | NUR ---
VISTARIL AND BENADRYL PRN ADMINISTRATION Pt stated " I get like this at the end of the day. I just get anxious. I'm anxious about tomorrow as well though. Can I have something to help me relax and my sleeper?" Vistaril 25 mg PO PRN and Benadryl 50 mg PO PRN was given. Pt was encouraged to notify staff of any changes in condition or of any concerns. Pt verbalized an understanding. All safety measures in place. Will monitor for effectiveness.
--- NOTE | 2016-09-12 21:30 | NUR ---
VISTARIL AND BENADRYL PRN REASSESSMENT Pt is sleeping in bed with no signs of discomfort/distress noted. Pt's breathing is even and unlabored. Respirations are 14 breaths per minute. PRNS effective. All safety measures in place. Will continue to monitor.
[2016-09-12 22:58] VITALS: BP 123/85
--- NOTE | 2016-09-12 22:58 | NUR ---
CLONIDINE PRN ADMINISTRATION Pt stated " I can't seem to get comfortable. Can I have Clonidine?" Clonidine 0.1 mg PO PRN was given. Pt was encouraged to notify staff of any changes in condition or of any further concerns. Pt verbalized an understanding. All safety measures in place. Will monitor for effectiveness.
--- NOTE | 2016-09-12 23:50 | NUR ---
CLONIDINE PRN REASSESSMENT Pt is sleeping in bed with no signs of discomfort/distress noted. Pt's breathing is even and unlabored. Respirations are 16 breaths per minute. PRN effective. All safety measures in place. Will continue to monitor.
--- NOTE | 2016-09-13 | NUR ---
CIWA AND VITALS REFUSED Pt refused to be assessed and have vitals taken at this time. Pt was encouraged x 3 with risks and benefits explained but the pt declined. All safety measures in place. Will continue to monitor. Addendum: 09/13/16 at 0444 by EVY GARCIA LVN Amended: Links added.
[2016-09-13 03:02] LABS: *AMPHETAMINE, URINE NEGATIVE (NEGATIVE); *BARBITURATE, URINE NEGATIVE (NEGATIVE); *CANNABINOID, URINE NEGATIVE (NEGATIVE); *COCCAINE, URINE NEGATIVE (NEGATIVE); *OPIATE, URINE NEGATIVE (NEGATIVE); *PHENCYCLIDINE SCREEN,URINE NEGATIVE (NEGATIVE)
[2016-09-13] MEDS: PANTOPRAZOLE SODIUM 40 MG TABLET.DR PO SCH (06:56)
--- NOTE | 2016-09-13 07:19 | NUR ---
END OF SHIFT NOTE Pt is a 41 y/o female admitted for ETOH dependence. Pt has NKA, but reported a PMH of ETOH induced fatty liver disease, GERD, hiatal hernia, hyperlipidemia, depression, anxiety, insomnia, and attempted suicide. Pt completed 5 day Ativan taper and is scheduled for discharge today. Pt received Vistaril 25 mg PO PRN, Clonidine 0.1 mg PO PRN, and Benadryl 50 mg PO PRN during the shift. Pt slept for a total of 7 hours. Last CIWA: 6 (1999). All safety measures in place; side rails up x 2, bed locked and in low position, and call light within reach. Endorsed to the oncoming nurse.
--- NOTE | 2016-09-13 07:30 | NUR ---
START OF SHIFT NOTE: RECEIVED PT FROM FIRE PROTECTION SPECIALIST NURSE, PT IS IN STABLE CONDITION AT THIS TIME NO S/S OF PAIN OR DISCOMFORT. PT IS ADMITTED [facility] FOR [facility] WITHDRAWAL/DEPENDENCE. PT IS SET FOR DISCHARGE TODAY WILL ASSIST PT IN DISCHARGING AND WILL CONTINUE TO MONITOR PT FOR ANY CHANGES.
[2016-09-13] MEDS ORDERED: FLUOXETINE HCL 20 MG CAPSULE PO SCH (09:00)
[2016-09-13] MEDS: FOLIC ACID 1 MG TABLET PO SCH (09:01)
[2016-09-13] MEDS: MULTIVITAMINS,THERAPEUTIC TABLET PO SCH (09:01)
[2016-09-13] MEDS: GABAPENTIN 300 MG CAPSULE PO SCH (09:01)
[2016-09-13] MEDS: THIAMINE HCL 100 MG TABLET PO SCH (09:01)
[2016-09-13] MEDS: DOCUSATE SODIUM 250 MG CAPSULE PO SCH (09:01)
[2016-09-13] MEDS: HYDROXYZINE PAMOATE 25 MG CAPSULE PO PRN (09:23)
[2016-09-13] MEDS: PATIENT MAY USE OWN MED- MD OK PO SCH (09:23)
--- NOTE | 2016-09-13 09:52 | NUR ---
DISCHARGE NOTE: PT LEFT THE UNIT IN STABLE CONDITION NO S/S OF PAIN OR DISCOMFORT OR ANY WITHDRAWAL SYMPTOMS. PT TEACHING ADMINISTERED AND PT VERBALIZED UNDERSTANDING. PTS PERSONAL BELONGINGS WERE RETURNED. PT'S V/S WNL. PT WILL BE TRANSFERRED TO ABLE TO CHANGE VIA PRIVATE CAR
[2016-09-14 20:25] LABS: *BENZODIAZEPINES Positive (.); *CANNABINOID (THC) Positive (.); *NORDIAZEPAM Negative (Cutoff=300); *OXAZEPAM Positive (.)
== END 2016-09-13 09:52 | disposition other institution (70) | DRG 895 ==
LOC: SRC 16:31
PROVIDERS: ADMIT Internal Medicine; ATTEND Internal Medicine
PROC: HZ2ZZZZ Detoxification Services for Substance Abuse Treatment (ICD-10-PCS; principal; 2016-09-06)
PROC: HZ31ZZZ Individual Counseling for Substance Abuse Treatment, Behavioral (ICD-10-PCS; 2016-09-07)
PROC: HZ41ZZZ Group Counseling for Substance Abuse Treatment, Behavioral (ICD-10-PCS; 2016-09-09)
DX: F10.230 Alcohol dependence with withdrawal, uncomplicated (principal); F33.2 Major depressive disorder, recurrent severe without psychotic features; F10.220 Alcohol dependence with intoxication, uncomplicated; K70.10 Alcoholic hepatitis without ascites; F13.90 Sedative, hypnotic, or anxiolytic use, unspecified, uncomplicated; Y90.9 Presence of alcohol in blood, level not specified; F41.9 Anxiety disorder, unspecified; G47.00 Insomnia, unspecified; K21.9 Gastro-esophageal reflux disease without esophagitis; K44.9 Diaphragmatic hernia without obstruction or gangrene; Z81.1 Family history of alcohol abuse and dependence; Z83.79 Family history of other diseases of the digestive system; F12.90 Cannabis use, unspecified, uncomplicated; E88.09 Other disorders of plasma-protein metabolism, not elsewhere classified; K76.0 Fatty (change of) liver, not elsewhere classified; R73.9 Hyperglycemia, unspecified
CPT/HCPCS: 36415; 70030-TC; 80307; 80346; 80349; 83690; 83735; 84443; 84703; 85025; 86580; 86592; 86705; 86803; 87340; 87806; 90686; 90732; A4663; G6040-TC; J3411; Q0163